=== PATIENT | male | born 1955 | race Caucasian/White ===

== ENCOUNTER 2016-10-02 10:03 | Emergency (ER) | payer OTHER ==
[~2016-10-02] VITALS: Ht 167.6 cm; Wt 86.0 kg
[~2016-10-02 10:03] MED LIST: ASPIR-TRIN325 M1 PO; ASPIRIN81 M1 PO; ATORVASTATIN CA40 MG PO; CHANTIX1 MG PO; COMBIVENT RESPIM4 GM IH; EFFIENT10 MG PO; LISINOPRIL5 MG PO; LO-DOSE ASPIRIN81 M1 PO; LOPRESSOR12.5 MG PO; METOPROLOL TART25 MG PO; NITROSTAT0.4 MG SL; NOHOMEMEDS; OXYCODONE-ACET1 EACH PO; PLAVIX75 MG PO; PRAVACHOL80 MG PO; ZETIA10 MG PO; Zestril,Prinivil PO
[2016-10-02 10:20] VITALS: BP 123/98
[2016-10-02] MEDS ORDERED: VALIUM5 MG PO (11:10)
[2016-10-02] MEDS ORDERED: NORCO 7.5/321 TABLET PO (11:10)
[2016-10-02] MEDS ORDERED: MOTRIN800 MG PO (11:10)
[2016-10-02] MEDS ORDERED: LIDODERM 5% P1 PATCH TD (11:18)
== END 2016-10-02 11:40 | disposition home or self-care (01) ==
LOC: EME 10:03
DX: M54.42 Lumbago with sciatica, left side (principal); I25.10 Atherosclerotic heart disease of native coronary artery without angina pectoris; E78.5 Hyperlipidemia, unspecified; I10 Essential (primary) hypertension; Z95.1 Presence of aortocoronary bypass graft; Z72.0 Tobacco use
CPT/HCPCS: 99281; 99284; J3010